=== PATIENT | female | born 1935 | race Caucasian/White ===

== ENCOUNTER 2019-06-09 19:49 | Emergency (ER) | payer OTHER ==
[2019-06-09 19:55] VITALS: BP 140/82; PULSE 81; TEMP 98.2; BMI 33.8
--- NOTE | 2019-06-09 19:57 | PDOC ---
History of Present Illness - General Chief Complaint: Wheezing Stated Complaint: DIFFICULTY BREATHING Time Seen by Provider: 06/09/19 19:57 History Source: Patient, Family Exam Limitations: No Limitations - History of Present Illness Initial Comments: 83 year old female with PMH HTN, HLD, COPD (not on Home O2, last steroid used x1 year ago), pedal edema, CKD, GERD, insomnia presented to ED with daughter for increasing shortness of breath x2 weeks, worsening over the last 2 days. Pt reported increased nonproductive cough, wheezing. Pt denied chest pain, palpitations, back pain, lightheadedness. Allergies: NKDA ROS General: admitted to generalized weakness. denied fever, chills. HEENT: denied sore throat, rhinorrhea, ear pain. Cardiovascular: admitted to pedal edema. denied chest pain, palpitations, syncope, diaphoresis. Respiratory: admitted to shortness of breath, cough. denied sputum production, hemoptysis. Gastrointestinal: denied abdominal pain, nausea, vomiting, diarrhea, constipation, blood in stool. Genitourinary: denied dysuria, increased urinary frequency, hematuria, urinary incontinence, flank pain. Back: denied back pain. Musculoskeletal: denied joint pain, muscle pain, joint swelling. Neurological: denied headache, dizziness, numbness, tingling, weakness. Integumentary: denied rash, laceration, abrasion. Hematologic/Lymphatic: denied bruising or bleeding. PE Constitutional: Well-nourished, Well-developed, appearing stated age. HEENT: head is normocephalic, atraumatic. EOMI. PERRLA. Neck: supple. Full ROM. Cardiovascular: regular heart rhythm. no murmurs. no pericardial friction rub. Respiratory: bilateral wheezing. speaking short sentences. no stridor. no retractions. Gastrointestinal: soft, nontender. normal bowel sounds. no rebound, guarding, masses. Extremities: peripheral pulses intact. 2+ pitting edema bilaterally. Neurological: CN 2-12 grossly intact. moves all four extremities. Psych: awake, alert, oriented x3. follows commands. answers questions appropriately. Past History - Past Medical History Allergies/Adverse Reactions: Allergies Allergy/AdvReac Type Severity Reaction Status Date / Time No Known Allergies Allergy Verified 06/09/19 20:28 Home Medications: Ambulatory Orders predniSONE [Deltasone -] 40 mg PO DAILY #8 tablet 06/09/19 COPD: Yes HTN: Yes Hypercholesterolemia: Yes Other medical history: restless leg - Suicide/Smoking/Psychosocial Hx Smoking History: Never smoked Hx Alcohol Use: No Drug/Substance Use Hx: No *Physical Exam - Vital Signs Last Vital Signs Temp Pulse Resp BP Pulse Ox 98.2 F 81 24 H 140/82 99 06/09/19 19:51 06/09/19 19:51 06/09/19 19:51 06/09/19 19:51 06/09/19 19:51 ED Treatment Course - LABORATORY CBC & Chemistry Diagram: 06/09/19 20:04 06/09/19 20:04 Medical Decision Making - Medical Decision Making 83 year old female with above PMH presented to ED for increasing shortness of breath, wheezing, pedal edema. Initial Vital Signs Temp Pulse Resp BP Pulse Ox 98.2 F 81 24 H 140/82 99 06/09/19 19:51 06/09/19 19:51 06/09/19 19:51 06/09/19 19:51 06/09/19 19:51 Afebrile. No tachycardia. Tachypneic. Mild hypertension. No hypoxia on room air. Pt was given 2 albuterol treatments via EMS en route to [facility]. Labs ordered: CBC, CMP, troponin, BNP Imaging ordered: CXR Medications ordered: solumedrol, duoneb x1 EKG 2154: rate 72, regular rhythm, normal axis, normal intervals, no acute ST changes. 06/09/19 21:10 CBC WBC 5.4 K/mm3 (4.0-10.0) 06/09/19 20:04 RBC 4.17 M/mm3 (3.60-5.2) 06/09/19 20:04 Hgb 12.3 GM/dL (10.7-15.3) 06/09/19 20:04 Hct 37.5 % (32.4-45.2) 06/09/19 20:04 MCV 89.8 fl (80-96) 06/09/19 20:04 MCH 29.6 pg (25.7-33.7) 06/09/19 20:04 MCHC 33.0 g/dl (32.0-36.0) 06/09/19 20:04 RDW 14.0 % (11.6-15.6) 06/09/19 20:04 Plt Count 266 K/MM3 (134-434) 06/09/19 20:04 MPV 8.2 fl (7.5-11.1) 06/09/19 20:04 Absolute Neuts (auto) 2.7 K/mm3 (1.5-8.0) 06/09/19 20:04 Neutrophils % 49.7 % (42.8-82.8) 06/09/19 20:04 Lymphocytes % 31.6 % (8-40) 06/09/19 20:04 Monocytes % 12.8 % (3.8-10.2) H 06/09/19 20:04 Eosinophils % 4.6 % (0-4.5) H 06/09/19 20:04 Basophils % 1.3 % (0-2.0) 06/09/19 20:04 Nucleated RBC % 0 % (0-0) 06/09/19 20:04 No leukocytosis. No anemia. CMP Sodium 142 mmol/L (136-145) 06/09/19 20:04 Potassium 4.1 mmol/L (3.5-5.1) 06/09/19 20:04 Chloride 109 mmol/L (98-107) H 06/09/19 20:04 Carbon Dioxide 28 mmol/L (21-32) 06/09/19 20:04 Anion Gap 6 MMOL/L (8-16) L 06/09/19 20:04 BUN 22.4 mg/dL (7-18) H 06/09/19 20:04 Creatinine 0.9 mg/dL (0.55-1.3) 06/09/19 20:04 Est GFR (CKD-EPI)AfAm 69.01 06/09/19 20:04 Est GFR (CKD-EPI)NonAf 59.55 06/09/19 20:04 Random Glucose 116 mg/dL (74-106) H 06/09/19 20:04 Calcium 9.8 mg/dL (8.5-10.1) 06/09/19 20:04 Phosphorus 2.4 mg/dL (2.5-4.9) L 06/09/19 20:04 Magnesium 2.1 mg/dL (1.8-2.4) 06/09/19 20:04 Total Bilirubin 0.4 mg/dL (0.2-1) 06/09/19 20:04 AST 20 U/L (15-37) 06/09/19 20:04 ALT 26 U/L (13-61) 06/09/19 20:04 Alkaline Phosphatase 120 U/L (45-117) H 06/09/19 20:04 Troponin I < 0.02 ng/ml (0.00-0.05) 06/09/19 20:04 B-Natriuretic Peptide 20.0 pg/ml (5-450) 06/09/19 20:17 Total Protein 6.8 g/dl (6.4-8.2) 06/09/19 20:04 Albumin 3.4 g/dl (3.4-5.0) 06/09/19 20:04 No clinically concerning electrolyte abnormalities. No DONELL. Mild dehydration. Troponin undetectable. BNP not elevated. VBG shows no CO2 retention, no acidosis. 06/09/19 22:[address] Carter' read: no infiltrate. cardiomegaly. no pulmonary vascular congestion. -Pending official report Pt reassessed, reported improved SOB, would like to go home. Examination: mild wheezing. Medications ordered: duonebx2 Will discharge with Prednisone. Pt reported having albuterol nebulizer solution and nebulizer. -Pt reported she only uses the nebulizer once a day if she needs it, even if she is still short of breath. 06/11/19 06:58 Follow up: Official CXR report: Name: [facility] DEPARTMENT OF RADIOLOGY Phys: Nadia Silverman RESIDENT : [id number] Age: 83 Sex: F [facility] Acct: [id number] Loc: [address] Exam Date: 06/09/19 Status: [facility] [place] [address] Unit Number: [id number] EXAM#: TYPE/EXAM: RESULT: [id number] RAD/CHEST PA LAT Chest: Shortness of breath There are no prior studies for comparison. 2 views the chest reveal a large heart, unfolded aorta, prominent bry and clear lung leung. The angles are sharp and the soft tissues are intact. There are degenerative changes with wedging. Impression: No acute chest pathology. Reported By: Memo Lopez MD 06/10/19 0636 *DC/Admit/Observation/Transfer Diagnosis at time of Disposition: COPD exacerbation, Shortness of breath - Discharge Dispostion Disposition: HOME Condition at time of disposition: Improved Decision to Admit order: No - Prescriptions Prescriptions: predniSONE [Deltasone -] 40 mg PO DAILY #8 tablet - Referrals - Patient Instructions Printed Discharge Instructions: DI for Chronic Obstructive Pulmonary Disease Additional Instructions: Take all medications as prescribed on labels. Use your albuterol nebulizer every 4-6 hours as needed for shortness of breath/ wheezing. Follow up with your primary care doctor within 3 days. Your care is not complete until you follow up. Bring all paperwork given to you today. Return to the Emergency Department for increasing shortness of breath, chest pain, lightheadedness, palpitations, fever, vomiting or any other new, worsening or concerning symptoms. - Post Discharge Activity
--- NOTE | 2019-06-09 19:59 | PDOC ---
Attending Attestation - Resident Resident Name: AndraEvelina - ED Attending Attestation I have performed the following: I have examined & evaluated the patient, The case was reviewed & discussed with the resident, I agree w/resident's findings & plan, Exceptions are as noted - HPI HPI: 06/09/19 19:59 83 yo female brought in by ambulance for shortness of breath using nebulizer upon arrival 06/09/19 20:14 - Physicial Exam PE: 06/09/19 20:14 wnwd 83 yo female with shortness of breath head ncat neck supple lungs b/l expiratory wheezing cvs [id number] abd nontender extremites + edema skin warm and dry neuro alert and conversant - Medical Decision Making 06/09/19 21:23 troponin 0.02 fca=417 cr= 0.9 pt's wheezing resolved with combivent treatments cxr no infiltrates 06/10/19 01:56
[2019-06-09] MEDS ORDERED: ALBUTEROL SO4 0.083% IH SOL 2.5 MG/3 ML VIAL.NEB. NEB ONE (20:09)
[2019-06-09] MEDS ORDERED: ALBUTEROL SO4 2.5/IPRATROPIUM 0.5 INH SOL 3 ML VIAL.NEB. NEB ONE ×2 (20:14→22:05)
[2019-06-09] MEDS ORDERED: methylPREDNISolone NA SUCC 125 MG/2 ML VIAL IVPUSH ONE (20:16)
[2019-06-09 20:22] LABS: VENOUS PC02 45.7 mmHg (38-52); VENOUS PH 7.39 (7.31-7.41)
[2019-06-09 20:24] LABS: BASO % 1.3 % (0-2.0); EOS % 4.6 % (0-4.5); HEMATOCRIT 37.5 % (32.4-45.2); HEMOGLOBIN 12.3 GM/dL (10.7-15.3); LYMPH % 31.6 % (8-40); MCH 29.6 pg (25.7-33.7); MEAN CELL VOLUME 89.8 fl (80-96); MEAN PLT VOLUME 8.2 fl (7.5-11.1); MONO % 12.8 % (3.8-10.2); NEUT % 49.7 % (42.8-82.8); PLATELET COUNT 266 K/MM3 (134-434); RBC 4.17 M/mm3 (3.60-5.2); VENOUS PO2 < 49 mmHg (28-48); WHITE BLOOD COUNT 5.4 K/mm3 (4.0-10.0)
[2019-06-09 20:37] LABS: INR 0.96 (0.83-1.09); PROTHROMBIN TIME (PATIENT) 11.3 SEC (9.7-13.0)
[2019-06-09 20:40] LABS: ACTIVATED PTT 33.3 SECONDS (25.2-36.5)
[2019-06-09 20:56] LABS: ALBUMIN 3.4 g/dl (3.4-5.0); ALK PHOS 120 U/L (45-117); ANION GAP 6 MMOL/L (8-16); BILIRUBIN,TOTAL 0.4 mg/dL (0.2-1); BLOOD UREA NITROGEN 22.4 mg/dL (7-18); CALCIUM 9.8 mg/dL (8.5-10.1); CHLORIDE 109 mmol/L (98-107); CO2 28 mmol/L (21-32); CREATININE 0.9 mg/dL (0.55-1.3); GLUCOSE,RANDOM 116 mg/dL (74-106); MAGNESIUM 2.1 mg/dL (1.8-2.4); PHOSPHOROUS 2.4 mg/dL (2.5-4.9); POTASSIUM 4.1 mmol/L (3.5-5.1); SGOT/AST 20 U/L (15-37); SGPT/ALT 26 U/L (13-61); SODIUM 142 mmol/L (136-145); TOT PROT 6.8 g/dl (6.4-8.2)
--- NOTE | 2019-06-10 11:27 | EKG ---
Test Reason : Blood Pressure : / mmHG Vent. Rate : 072 BPM Atrial Rate : 072 BPM P-R Int : 188 ms QRS Dur : 078 ms QT Int : 394 ms P-R-T Axes : 094 035 046 degrees QTc Int : 431 ms NORMAL SINUS RHYTHM NO PREVIOUS ECGS AVAILABLE Confirmed by STEVEN SHOOK MD ([id number]) on 06/10/2019 11:26:51 AM Referred By: Confirmed By:STEVEN SHOOK MD
== END 2019-06-09 22:58 | disposition home or self-care (01) ==
LOC: JER 19:49 → EDBD 19:49 → JER 22:58
PROC: 3E0333Z Introduction of Anti-inflammatory into Peripheral Vein, Percutaneous Approach (ICD-10-PCS; principal; 2019-06-09)
PROC: 3E0F7GC Introduction of Other Therapeutic Substance into Respiratory Tract, Via Natural or Artificial Opening (ICD-10-PCS; 2019-06-09)
PROC: 3E0F7GC Introduction of Other Therapeutic Substance into Respiratory Tract, Via Natural or Artificial Opening (ICD-10-PCS; 2019-06-09)
DX: J44.1 Chronic obstructive pulmonary disease with (acute) exacerbation (principal); I12.9 Hypertensive chronic kidney disease with stage 1 through stage 4 chronic kidney disease, or unspecified chronic kidney disease; N18.9 Chronic kidney disease, unspecified; E78.00 Pure hypercholesterolemia, unspecified; G25.81 Restless legs syndrome; K21.9 Gastro-esophageal reflux disease without esophagitis; G47.00 Insomnia, unspecified
CPT/HCPCS: 36415; 71046-TC-FY; 80053; 82803; 83735; 83880; 84100; 84484; 85025; 85610; 85730; 93005; 93010; 94640; 96374; 99282-25